=== PATIENT | female | born 1975 | race Caucasian/White ===

== ENCOUNTER 2021-05-02 01:41 | Emergency (ER) | payer OTHER ==
[~2021-05-02] VITALS: Ht 167.6 cm; Wt 45.4 kg
== END 2021-05-02 03:45 | disposition home or self-care (01) ==
LOC: ED 01:41
DX: S61.215A Laceration without foreign body of left ring finger without damage to nail, initial encounter (principal); S60.222A Contusion of left hand, initial encounter; Z23 Encounter for immunization; F17.200 Nicotine dependence, unspecified, uncomplicated; Y04.8XXA Assault by other bodily force, initial encounter
CPT/HCPCS: 73130; 90471; 90715; 99284-25

== ENCOUNTER 2021-06-26 11:45 | Emergency (ER) | payer OTHER ==
[~2021-06-26] VITALS: Ht 167.6 cm; Wt 47.8 kg
== END 2021-06-26 15:22 | disposition left against medical advice (07) ==
LOC: ED 11:45
DX: S02.612A Fracture of condylar process of left mandible, initial encounter for closed fracture (principal); S39.012A Strain of muscle, fascia and tendon of lower back, initial encounter; F17.200 Nicotine dependence, unspecified, uncomplicated; Y04.8XXA Assault by other bodily force, initial encounter; Y90.0 Blood alcohol level of less than 20 mg/100 ml
CPT/HCPCS: 70486; 72100; 80053; 81001; 84443; 84703; 85025; 99285-25; G0480